=== PATIENT | male | born 1955 | race Caucasian/White ===

== ENCOUNTER 2020-08-28 15:40 | Emergency (ER) | payer OTHER ==
[2020-08-28 16:41] LABS: ANION GAP 18.4 mmol/L (5-15); CHLORIDE,CL 104 mmol/L (98-115); SODIUM,NA 141 mmol/L (136-145)
[2020-08-28] MEDS ORDERED: ALTEPLASE IV STA (17:00)
[2020-08-28] MEDS ORDERED: INFUSION IV STA (17:00)
[2020-08-28 17:03] LABS: PTT,PARTIAL THROMBOPLSTIN TIME 24.5 SEC (22.8-31.4)
--- NOTE | 2020-08-28 17:21 | EDM.PDOC ---
ED HPI GENERAL MEDICAL PROBLEM - General Chief Complaint: Neurological Problem Stated Complaint: stroke-like symptoms Time Seen by Provider: 08/28/20 16:58 Source of Information: Reports: Patient, EMS - History of Present Illness INITIAL COMMENTS - FREE TEXT/NARRATIVE: Patient presents to the emergency room by EMS for possible signs of stroke. Patient has had slurred speech facial drooping and weakness to his right side. 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 They called EMS and transferred here. Patient last known well was 230 this afternoon. 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 He developed slurred speech and was going in and out of being full alert. patient has had a history of hypertension and is on losartan. History of 20-30-year pack history of smoking 1-2packs per day however he does not smoke anymore. He does have history of daily chronic alcohol use 5 beers a day per . Headache Pain Score (Numeric/FACES): 4 - Related Data Allergies Allergy/AdvReac Type Severity Reaction Status Date / Time No Known Drug Allergies Allergy Cannot Verified 08/28/20 16:37 Remember Home Meds: Home Meds Losartan Potassium 50 mg PO DAILY 08/28/20 [History] ED ROS GENERAL - Review of Systems Review Of Systems: See Below Constitutional: Reports: No Symptoms. Denies: Fever Respiratory: Reports: No Symptoms. Denies: Shortness of Breath Cardiovascular: Reports: No Symptoms. Denies: Chest Pain GI/Abdominal: Reports: No Symptoms. Denies: Abdominal Pain, Nausea, Vomiting Skin: Reports: No Symptoms. Denies: Pallor Neurological: Reports: Confusion, Headache, Trouble Speaking, Difficulty Walking, Weakness, Change in Speech, Gait Disturbance, Other (Planes of mild headache). Denies: Numbness, Paresthesia, Seizure, Syncope Psychiatric: Reports: No Symptoms - Physical Exam Exam: See Below Exam Limited By: No Limitations General Appearance: Alert, Mild Distress Eye Exam: Bilateral Eye: EOMI (However he has difficulty following my commands), PERRL, Vision Changes (His vision changes) Ears: Hearing Grossly Normal Nose: Normal Inspection Throat/Mouth: Normal Inspection, Normal Oropharynx Head Exam: Atraumatic, Normocephalic Neck: Normal Inspection, Supple, Non-Tender, Full Range of Motion Respiratory/Chest: No Respiratory Distress, Lungs Clear, Normal Breath Sounds Cardiovascular: Normal Peripheral Pulses, Regular Rate, Rhythm, No Edema GI/Abdominal: Normal Bowel Sounds, Soft, Non-Tender Neuro Exam (Abbreviated): Alert, Other (Oriented place and birthdate and person. 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 No: Diaphoretic #1 Interpretation EKG Date: 08/28/20 Rhythm: NSR [place]: Normal P-Wave: Present QRS: Normal ST-T: Normal QT: Normal Course - Vital Signs Last Recorded V/S: Last Vital Signs Temp 97.7 F 08/28/20 16:00 Pulse 76 08/28/20 16:05 Resp 16 08/28/20 16:05 BP 164/99 H 08/28/20 16:05 Pulse Ox 95 08/28/20 16:05 - Orders/Labs/Meds Orders: Active Orders 24 hr Category Date Time Status EKG Documentation Completion [RC] ASDIRECTED Care 08/28/20 16:20 Active POC Glucose [Blood Glucose Check, Bedside] [RC] ONETIME Care 08/28/20 16:19 Active EKG 12 Lead [EK] Stat Ther 08/28/20 16:19 Ordered Labs: Laboratory Tests 08/28/20 08/28/20 08/28/20 Range/Units 16:09 16:09 16:09 WBC 3.52 L (5.00-10.00) 10^3/uL RBC 4.19 L (4.50-6.00) 10^6/uL Hgb 13.2 (13.0-17.0) g/dL Hct 39.8 L (40.0-52.0) % MCV 95.0 H (82.0-92.0) fL MCH 31.5 H (27.0-31.0) pg MCHC 33.2 (32.0-36.0) g/dL RDW 15.5 H (11.5-14.5) % Plt Count 168 (150-400) 10^3/uL MPV 9.2 (7.4-10.4) fL PT 9.3 (9.2-11.2) SEC INR 0.9 (0.9-1.1) APTT 24.5 (22.8-31.4) SEC Sodium 141 (136-145) mmol/L Potassium 3.9 (3.3-5.3) mmol/L Chloride 104 (98-115) mmol/L Carbon Dioxide 22.5 (21.0-32.0) mmol/L Anion Gap 18.4 H (5-15) mmol/L BUN 12 (6-25) mg/dL Creatinine 0.86 (0.51-1.17) mg/dL Est Cr Clr Drug Dosing TNP Estimated GFR (MDRD) > 60 mL/min Glucose 87 (75 - 99) mg/dL Calcium 8.4 L (8.7-10.3) mg/dL Total Bilirubin 0.5 (0.2-1.0) mg/dL AST 123 H (15-37) U/L ALT 113 H (12-78) U/L Alkaline Phosphatase 59 (46-116) IU/L Total Protein 7.2 (6.4-8.2) g/dL Albumin 3.88 (3.00-4.80) g/dL Ethyl Alcohol (NONE DETECTED) mg/dL 08/28/20 Range/Units 16:09 WBC (5.00-10.00) 10^3/uL RBC (4.50-6.00) 10^6/uL Hgb (13.0-17.0) g/dL Hct (40.0-52.0) % MCV (82.0-92.0) fL MCH (27.0-31.0) pg MCHC (32.0-36.0) g/dL RDW (11.5-14.5) % Plt Count (150-400) 10^3/uL MPV (7.4-10.4) fL PT (9.2-11.2) SEC INR (0.9-1.1) APTT (22.8-31.4) SEC Sodium (136-145) mmol/L Potassium (3.3-5.3) mmol/L Chloride (98-115) mmol/L Carbon Dioxide (21.0-32.0) mmol/L Anion Gap (5-15) mmol/L BUN (6-25) mg/dL Creatinine (0.51-1.17) mg/dL Est Cr Clr Drug Dosing Estimated GFR (MDRD) mL/min Glucose (75 - 99) mg/dL Calcium (8.7-10.3) mg/dL Total Bilirubin (0.2-1.0) mg/dL AST (15-37) U/L ALT (12-78) U/L Alkaline Phosphatase (46-116) IU/L Total Protein (6.4-8.2) g/dL Albumin (3.00-4.80) g/dL Ethyl Alcohol 421 H* (NONE DETECTED) mg/dL Meds: Medications Discontinued Medications Generic Name Dose Route Start Last Admin Trade Name Antoineq PRN Reason Stop Dose Admin Alteplase, Recombinant 7.9 mg 08/28/20 17:00 08/28/20 17:00 Activase IVPUSH 08/28/20 17:01 7.9 mg .BOLUS ONE Administration Alteplase, Recombinant 71.1 mg 0 mls @ 0 mls/hr 08/28/20 17:00 08/28/20 19:41 / Alteplase, Recombinant IV 08/28/20 17:01 71.1 mls/hr ASDIRECTED STA Administration - Re-Assessments/Exams Free Text/Narrative Re-Assessment/Exam: 08/28/20 22:26 NIH stroke scale initially was 11 points. I did consult Na through the telemedicine. I did talk to stroke doctor at [facility] in [place] after his CT head came back negative for intracranial bleeding. I did speak with the on-call radiologist who read that CT report. Since his last known well was at 1430 and due to his impairments patient was started thrombolytics as protocol with agreement with the stroke doctor myself. Before the thrombolytics were started I did have a long conversation with the son and to the phone explained the risks and benefits and clarify the history of the patient as well. He has had no recent surgeries no recent strokes no blood thinners no head trauma. They give me permission to administer thrombolytics as he had significant impairments on his initial NIH stroke scale. 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 He voided clear urine. Patient NIH stroke scale was 9 points at the time. On arrival his glucose was 78, EMS is in the 80s. He admits to drinking 2 beers. His buddies who are with him states he had 3 beers. His alcohol came back after thrombolytics were started and patient transferred it was 0.420. Which is significantly elevated. This might be related to chronic drinking. The patient denies drinking more than 3 beers today. The patient has multiple asthma throughout his emergency stay "am i having a stroke?" Transferred by EMS gently to [facility] emergency room after care was accepted by physician. Departure - Departure Time of Disposition: 17:00 Disposition: DC/Tfer to Acute Hospital 02 Condition: Serious Clinical Impression: CVA (cerebral vascular accident) Qualifiers: CVA mechanism: other Qualified Code(s): I63.89 - Other cerebral infarction - Discharge Information *PRESCRIPTION DRUG MONITORING PROGRAM REVIEWED*: No *COPY OF PRESCRIPTION DRUG MONITORING REPORT IN PATIENT JEMIMA: No Referrals: TWILA CROCKETT [Other] Forms: ED Department Discharge Sepsis Event Note (ED) - Evaluation Sepsis Screening Result: No Definite Risk - Focused Exam Vital Signs: Vital Signs Temp Pulse Resp BP Pulse Ox 08/28/20 16:05 76 16 164/99 H 95 08/28/20 16:00 97.7 F 76 20 189/70 H 95 - My Orders Last 24 Hours: My Active Orders 08/28/20 16:19 POC Glucose [Blood Glucose Check, Bedside] [RC] ONETIME EKG 12 Lead [EK] Stat 08/28/20 16:20 EKG Documentation Completion [RC] ASDIRECTED - Assessment/Plan Last 24 Hours: My Active Orders 08/28/20 16:19 POC Glucose [Blood Glucose Check, Bedside] [RC] ONETIME EKG 12 Lead [EK] Stat 08/28/20 16:20 EKG Documentation Completion [RC] ASDIRECTED
== END 2020-08-28 17:15 ==
LOC: KA.ED 15:40
DX: I63.89 Other cerebral infarction (principal); Z79.899 Other long term (current) drug therapy
CPT/HCPCS: 36415; 70450; 80053; 80307; 85027; 85610; 85730; 93005; 96365; 99284; 99285-25; J2997